=== PATIENT | female | born 1935 ===

== ENCOUNTER 2021-03-17 17:25 | Emergency (ER) | payer OTHER ==
[~2021-03-17] VITALS: Ht 162.6 cm; Wt 83.9 kg
[2021-03-17] MEDS ORDERED: LOSARTAN POTASS50 MG PO (17:31)
[2021-03-17] MEDS ORDERED: LIPITOR20 MG PO (17:31)
[2021-03-17] MEDS ORDERED: CILOSTAZOL50 MG PO (17:31)
[2021-03-17] MEDS ORDERED: ZETIA10 MG PO (17:32)
[2021-03-17] MEDS ORDERED: KAPSPARGO SPRIN50 MG PO (17:32)
[2021-03-17] MEDS ORDERED: FLAGYL500MG PO (20:43)
[2021-03-17] MEDS ORDERED: CIPRO500 MG PO (20:43)
[2021-03-17] MEDS ORDERED: INTESTINEX680 M2 PO (20:43)
[2021-03-17] MEDS ORDERED: PEPCID20 MG PO (20:43)
[2021-03-17] MEDS ORDERED: LEVSIN0.125 MG PO (20:44)
== END 2021-03-17 21:43 | disposition home or self-care (01) ==
LOC: ER 17:25
DX: A09 Infectious gastroenteritis and colitis, unspecified (principal)